=== PATIENT | male | born 1950 | race Caucasian/White ===

== ENCOUNTER 2025-08-16 07:34 | Outpatient (OUT) | payer MEDICARE, SELFPAY ==
--- NOTE | 2025-08-16 07:41 | MR_ITS ---
[address] [address] Patient Name: BETHEL GAMING MRN: [id number] date: 1950 Sex: M Assigned Patient Location: MRI Current Patient Location: MRI Accession/Order Number: [id number] Exam Date: 08/16/2025 08:00 Report Date: 08/16/2025 10:21 At the request of: ARNULFO GOMEZ DO Procedure: MR head/brain wo/w con MR head/brain wo/w con 08/16/2025 9:06 AM SIGN AND SYMPTOMS: ^Confusion, recent fall PROTOCOL: Multiplanar multisequence MR images of brain with and without IV contrast CONTRAST: 13 mL of intravenous Dotarem COMPARISON: None. FINDINGS: Extra axial spaces: There is age-related cortical atrophy. Atrophy is focally greatest along the anterior and medial aspect of the temporal lobes bilaterally. Hemorrhage: None. Ventricular system: Within normal limits. Basal cisterns: Within normal limits and not effaced. Cerebral parenchyma: T2 and FLAIR hyperintense signal is noted throughout the periventricular and subcortical white matter. Midline shift: None.. Cerebellum: Within normal limits. Brainstem: Within normal limits. OTHER: Calvarium: Normal marrow signal. Vascular system: Satisfactory flow voids within the anterior and posterior circulation. Visualized Paranasal sinuses: Within normal limits. Visualized Orbits: Within normal limits. Visualized upper cervical spine: Within normal limits. Sella and skull base: Within normal limits. MR/MR head/brain wo/w con IMPRESSION: There is age-related cortical atrophy. Atrophy is focally greatest along the anterior and medial aspect of the temporal lobes bilaterally. Chronic microvascular ischemic changes are noted. No acute intracranial pathology or abnormal postcontrast enhancement. Impression dictated by: Blayne Walls M.D. 08/16/2025 10:21 AM Dictation Location: [place] [address] Electronically authenticated by: [id number] Y Date: 08/16/2025 10:21
== END 2025-08-16 07:35 | disposition home or self-care (01) ==
LOC: MRI 07:34
PROVIDERS: PCP Family Medicine; Visit Provider Family Medicine
DX: R41.0 Disorientation, unspecified (principal)
CPT/HCPCS: 70553; A9575